=== PATIENT | male | born 1995 | race Two or more races ===

== ENCOUNTER 2019-05-01 17:46 | Emergency (ER) | payer SELFPAY ==
--- NOTE | 2019-05-01 17:58 | ER Report ---
History and Physical Time Seen By MD: 17:50 HPI/ROS CHIEF COMPLAINT: Chest pain HISTORY OF PRESENT ILLNESS: This is a 23-year-old Filipino-speaking male only male who presents to emergency department for chest pain. Per secondary english teacher line, the patient has had recurrent chest pain for approximately one year, has been evaluated for this previously was encouraged to follow-up with cardiology. Patient presents today with recurrent chest pain, left anterior chest, the pain is not reproducible, the pain does not intensify with activity, it does, s hortness of breath, diaphoresis. He states that he does however have occasional sweaty palms. He also states that he has a history of anxiety and depression. He denies nausea or vomiting. No rashes. No headaches or blurred vision. REVIEW OF SYSTEMS: Constitutional: No fever, no chills. Eyes: No discharge. ENT: No sore throat. Cardiovascular: As above. Respiratory: As above. Gastrointestinal: No abdominal pain, no vomiting. Genitourinary: No hematuria. Musculoskeletal: No back pain. Skin: No rashes. Neurological: No headache. Allergies: Coded Allergies: No Known Drug Allergies (Unverified , 05/01/19) Home Meds Active Scripts Albuterol Sulfate (VENTOLIN HFA) 18 Gm Inh, 1-2 PUFF INH 3-4XD, #1 INH Prov:KARISSA BHARDWAJ [facility]- 05/01/19 Prednisone (PREDNISONE) 20 Mg Tablet, 20 MG PO BID, #10 TAB Prov:KARISSA BHARDWAJ [facility]- 05/01/19 Past Medical/Surgical History The patient has a past medical surgical history of headaches and hypertension. Reviewed Nurses Notes: Yes Constitutional Vital Sign - Last 24 Hours 05/01/19 05/01/19 05/01/19 05/01/19 17:54 18:00 18:30 19:30 Temp 98.5 Pulse 81 81 67 78 Resp 16 20 22 B/P (MAP) 144/110 138/93 (108) 125/85 (98) 116/76 (89) Pulse Ox 93 95 96 O2 Delivery Room Air 05/01/19 05/01/19 19:52 20:00 Pulse 74 89 Resp 16 17 B/P (MAP) 126/77 (93) Pulse Ox 95 Physical Exam General Appearance: The patient is alert, has no immediate need for airway protection and no signs of toxicity. Eyes: Pupils equal and round no pallor or injection. ENT, Mouth: Mucous membranes are moist. Respiratory: There are no retractions, lungs are clear to auscultation. Cardiovascular: Regular rate and rhythm. No murmurs, clicks or rubs. Gastrointestinal: Abdomen is soft and non tender, no masses, bowel sounds normal. Neurological: Alert and oriented 4. Moving all extremities. Following. No focal neuro deficits. Skin: Warm and dry, no rashes. Musculoskeletal: Neck is supple non tender. Extremities are nontender, nonswollen and have full range of motion. DIFFERENTIAL DIAGNOSIS: After history and physical exam differential diagnosis was considered for chest pain including but not limited to myocardial ischemia, pericarditis pulmonary embolus, chest wall pain, pleural inflammation and pulmonary infectious causes. Medical Decision Making Data Points Result Diagram: 05/01/191 05/01/19 1811 Laboratory Hematology Test 05/01/19 18:11 White Blood Count 7.1 k/uL (4.5-11.0) Red Blood Count 5.03 M/uL (4.00-5.60) Hemoglobin 15.7 g/dL (14.0-18.0) Hematocrit 45.2 % (42.0-52.0) Mean Corpuscular Volume 89.9 fL (80.0-96.0) Mean Corpuscular Hemoglobin 31.1 pg (26.0-33.0) Mean Corpuscular Hemoglobin Concent 34.6 g/dL (32.0-36.0) Red Cell Distribution Width 13.4 % (11.5-14.5) Platelet Count 234 K/uL (150-450) Mean Platelet Volume 8.8 fL (7.2-11.1) Neutrophils (%) (Auto) 53.1 % (39.4-72.5) Lymphocytes (%) (Auto) 37.5 % (17.6-49.6) Monocytes (%) (Auto) 7.9 % (4.1-12.4) Eosinophils (%) (Auto) 0.9 % (0.4-6.7) Basophils (%) (Auto) 0.6 % (0.3-1.4) Nucleated RBC Relative Count (auto) 0.0 /100WBC Neutrophils # (Auto) 3.8 K/uL (2.0-7.4) Lymphocytes # (Auto) 2.7 K/uL (1.3-3.6) Monocytes # (Auto) 0.6 K/uL (0.3-1.0) Eosinophils # (Auto) 0.1 K/uL (0.0-0.5) Basophils # (Auto) 0.0 K/uL (0.0-0.1) Nucleated RBC Absolute Count (auto) 0.00 K/uL Chemistry Test 05/01/19 18:11 Sodium Level 137 mmol/L (137-145) Potassium Level 3.5 mmol/L (3.5-5.0) Chloride Level 102 mmol/L (98-107) Carbon Dioxide Level 25 mmol/L (22-30) Blood Urea Nitrogen 14 mg/dl (9-21) Creatinine 0.70 mg/dl (0.66-1.25) Glomerular Filtration Rate Calc > 60.0 Random Glucose 106 mg/dl (75-110) Calcium Level 9.3 mg/dl (8.4-10.2) Total Bilirubin 0.3 mg/dl (0.2-1.3) Aspartate Amino Transf (AST/SGOT) 36 U/L (0-35) Alanine Aminotransferase (ALT/SGPT) 55 U/L (0-56) Alkaline Phosphatase 74 U/L (0-126) Troponin I < 0.012 ng/ml Total Protein 7.8 g/dl (6.3-8.2) Albumin 4.6 g/dl (3.5-5.0) Coagulation Test 05/01/19 18:11 D-Dimer Quantitative (PE/DVT) 0.31 ug/ml (0-0.50) EKG/Imaging EKG Interpretation 12 lead EKG: Time of EKG 18 1. Rhythm: Normal sinus rhythm, ventricular rate 68 bpm. [place]: normal QRS: normal ST segments: No ST depression or elevation identified. Imaging PATIENT NAME: Darrel Gaxiola : 1995 MR: [id number] V: [id number] EXAM DATE: ORDERING PHYSICIAN: KARISSA BHARDWAJ TECHNOLOGIST: Location: [facility] - [place] Patient: Darrel Gaxiola : 1995 Visit/Account:[id number] Date of Sevice: 05/01/2019 EXAMINATION: Chest 2 Views HISTORY: Chest pain. COMPARISON: None. FINDINGS: Normal and symmetric lung volumes. There is mild prominence of the perihilar markings bilaterally, with peribronchial thickening. No focal consolidation. No pleural effusion or pneumothorax. Normal cardiomediastinal silhouette, with normal heart size and pulmonary vasc ularity. Visualized osseous structures are unremarkable. IMPRESSION: Peribronchial thickening may be compatible with bronchial inflammation or viral infection. No evidence of a focal pneumonia. Report Dictated By: Abdullahi Liao MD at 05/01/2019 7:31 PM Report E-Signed By: Abdullahi Liao MD at 05/01/2019 7:32 PM WSN:[id number] ED Course/Re-evaluation Clinical Indication for ER IV: Hydration, IV Access ED Course The patient was admitted to a room. A history and physical obtained. Differential diagnoses were considered. An IV was started. A CBC, CMP, troponin were obtained. Lab studies unremarkable, negative troponin, negative d-dimer. EKG showing normal sinus rhythm. Patient was given a DuoNeb treatment and a milligrams of ibuprofen for his headache. I did review the results with the patient. I did tell him that this could be secondary to seasonal allergies however I did recommend following up with cardiology, for the recurrent e pisodes. Given a prescription for steroid burst at home, as well as an inhaler. Patient expressed understanding and was discharged home. Decision to Disposition Date: May 01, 2019 Decision to Disposition Time: 20:33 Depart Departure Latest Vital Signs Vital Signs Date Time Temp Pulse Resp B/P (MAP) Pulse Ox O2 Delivery O2 Flow Rate FiO2 05/01/19 20:00 89 17 126/77 (93) 95 05/01/19 17:54 98.5 Room Air Impression: Primary Impression: Non-cardiac chest pain Condition: Improved Disposition: HOME OR SELF-CARE Referrals: SARAN ANDERS MD,HEATHER CODY MD, MD New Scripts Albuterol Sulfate (VENTOLIN HFA) 18 Gm Inh 1-2 PUFF INH 3-4XD, #1 INH Prov: KARISSA BHARDWAJ URGENT CARE NURSE PRACTITIONER-BC 05/01/19 Prednisone (PREDNISONE) 20 Mg Tablet 20 MG PO BID, #10 TAB Prov: KARISSA BHARDWAJ URGENT CARE NURSE PRACTITIONER-BC 05/01/19 Patient Instructions: Allergies (ED), Noncardiac Chest Pain (ED) Additional Instructions: There were no concerning findings on your laboratory studies, EKG or chest x-ray today. I do however feel that you have this recurrent pain it is advisable to follow-up with a curator of education, Dr. Campos in [place]. You can also follow up with neurology for the recurrent headaches, Dr. Anders or Dr. Dias. Drink plenty of water. Get plenty of rest. Take the steroids as prescribed. Use the inhaler as prescribed. Return to the ED for any other concerns or worsening symptoms. KARISSA BHARDWAJ URGENT CARE NURSE PRACTITIONER-BC May 01, 2019 17:58
[2019-05-01] MEDS ORDERED: ASPIRIN 81 MG CHEW PO ONE (18:10)
[2019-05-01] MEDS ORDERED: NS(*) 0.9% 1000 ML BAG 1,000 ML IV ONE (18:10)
[2019-05-01 18:28] LABS: PLATELET COUNT, AUTOMATED 234 K/uL (150-450)
--- NOTE | 2019-05-01 18:48 | EKG ---
[place] [facility] [place] NAME: MAGDALENA AVERY : [id number] MR: [id number] V: [id number] EXAM DATE: ORDERING PHYSICIAN: KARISSA BHARDWAJ TECHNOLOGIST: Test Reason : chest pain Blood Pressure : / mmHG Vent. Rate : 068 BPM Atrial Rate : 068 BPM P-R Int : 146 ms QRS Dur : 102 ms QT Int : 380 ms P-R-T Axes : 051 038 035 degrees QTc Int : 404 ms Normal sinus rhythm Normal ECG No previous ECGs available Confirmed by JANICE CARSON ([id number]) on 05/01/2019 7:14:42 PM Referred By: Confirmed By:JANICE CARSON
--- NOTE | 2019-05-01 19:39 | RADIOLOGY IMAGING REPORT ---
FACILITY: [facility] PATIENT NAME: Darrel Gaxiola : 1995 MR: [id number] V: [id number] EXAM DATE: ORDERING PHYSICIAN: KARISSA BHARDWAJ [place]CHNOLOGIST: [place] [facility] [place] Darrel Gax[place]ola : 1995 Visit/Account:[id number] Date of Sevice: 05/01/2019 EXAMINATION: Chest 2 Views HISTORY: Chest pain. COMPARISON: None. FINDINGS: Normal and symmetric lung volumes. There is mild prominence of the perihilar markings bilaterally, wi th peribronchial thickening. No focal consolidation. No pleural effusion or pneumothorax. Normal cardiomediastinal silhouette, with normal heart size and pulmonary vascularity. Visualized osseous structures are unremarkable. IMPRESSION: Peribronchial thickening may be compatible with bronchial inflammation or viral infection. No eviden ce of a focal pneumonia. Report Dictated By: Abdullahi Liao MD at 05/01/2019 7:31 PM Report E-Signed By: Abdullahi Liao MD at 05/01/2019 7:32 PM WSN:[id number]
[2019-05-01] MEDS ORDERED: ALBUTEROL/IPRATROPIUM 3 ML NEB NEB ONE (19:45)
[2019-05-01] MEDS ORDERED: IBUPROFEN 800 MG TAB PO ONE (19:50)
[2019-05-01] MEDS ORDERED: PRED20TA6 PO (20:13)
[2019-05-01] MEDS ORDERED: ALB18R INH (20:13)
[2019-05-01 20:30] VITALS: BP 126/68
== END 2019-05-01 20:50 | disposition home or self-care (01) ==
LOC: ER 17:58
DX: R07.89 Other chest pain (principal)
CPT/HCPCS: 71046; 84484; 85025; 85379; 93005; 94640; 96360; 99284; J7030; J7620; 82040; 82247; 82310; 82374; 82435; 82565; 82947; 84075; 84132; 84155; 84295; 84450; 84460; 84520